=== PATIENT | female | born 1960 | race Caucasian/White ===

== ENCOUNTER 2022-01-28 05:25 | Day surgery (SDC) | payer OTHER, SELFPAY ==
[~2022-01-28] VITALS: Ht 172.7 cm; Wt 113.4 kg
[2022-01-28] MEDS ORDERED: CEFAZOLIN SOD 1 GM in D5W 50 ML IV ONE (07:00)
[2022-01-28] MEDS ORDERED: ACETAMINOPHEN I.V. 1000 MG 100 ML IV ONE (07:30)
[2022-01-28] MEDS ORDERED: DEXAMETHASONE SOD PHOSPHATE 4 MG/ML VIAL ONE (07:32)
[2022-01-28] MEDS ORDERED: SUGAMMADEX SODIUM 200 MG/2 ML VIAL IV ONE (07:32)
[2022-01-28] MEDS ORDERED: fentaNYL CITRATE 250 MCG/5 ML AMP ONE (07:32)
[2022-01-28] MEDS ORDERED: CEFAZOLIN 2 GM IVPB PREMIX 50 ML IV ONE (07:32)
[2022-01-28] MEDS ORDERED: PROPOFOL 200MG/ 20ML VIAL (DIPRIVAN) IV ONE (07:32)
[2022-01-28] MEDS ORDERED: DESFLURANE 15 MIN GAS INH ONE (07:32)
[2022-01-28] MEDS ORDERED: KETOROLAC TROMETHAMINE 30 MG VIAL ONE (07:32)
[2022-01-28] MEDS ORDERED: ROCURONIUM BROMIDE 10 MG/ML (ZEMURON) ONE (07:32)
[2022-01-28] MEDS ORDERED: BUPIVACAINE /EPINEPHRINE/PF 0.25% 30 ML VIAL INJ ONE (07:32)
[2022-01-28] MEDS ORDERED: LIDOCAINE 1% 10 MG/ML, 20 ML MDV ONE (07:32)
[2022-01-28] MEDS ORDERED: WATER FOR IRRIGATION,STERILE 1,000 ML IRRIG.SOLN IR ONE (07:32)
[2022-01-28] MEDS ORDERED: NS IRRIG SOLN 1000 ML IR ONE (07:32)
[2022-01-28] MEDS ORDERED: LR 1,000 ML IV.SOLN IV ONE (07:32)
[2022-01-28] MEDS ORDERED: MIDAZOLAM HCL 5 MG/5 ML VIAL ONE (07:32)
[2022-01-28] MEDS ORDERED: GLYCOPYRROLATE 0.2 MG/ML VIAL ONE (07:32)
[2022-01-28] MEDS ORDERED: NS 100 ML BAG ONE (07:32)
[2022-01-28] MEDS ORDERED: ONDANSETRON HCL 4 MG/2 ML VIAL ONE (07:32)
[2022-01-28] MEDS ORDERED: HYDROmorphone 1 MG/ML INJ. CARTRIDGE IVP PRN ×3 (08:15→09:45)
[2022-01-28] MEDS ORDERED: METOCLOPRAMIDE HCL 10 MG/2 ML VIAL IVP PRN (08:15)
[2022-01-28] MEDS ORDERED: MEPERIDINE HCL/PF 25 MG/ML DISP.SYRIN IVP PRN (08:15)
[2022-01-28] MEDS ORDERED: LR 1,000 ML IV SCH (08:15)
[2022-01-28] MEDS ORDERED: ATROPINE SULFATE 1 MG/10 ML SYRINGE IVP PRN (09:30)
[2022-01-28] MEDS ORDERED: D5/0.45 NS 1,000 ML IV SCH (09:45)
[2022-01-28] MEDS ORDERED: HYDROcodone/ACETAMIN 5-325 MG TAB (NORCO/ VICODIN) PO PRN ×2 (09:45)
[2022-01-28] MEDS: MEPERIDINE HCL/PF 25 MG/ML DISP.SYRIN ONE ×2 (09:57→09:59)
[2022-01-28] MEDS: HYDROmorphone 2 MG/ML VIAL ONE ×5 (10:39→10:59)
[2022-01-28 13:30] VITALS: BP_SYST 112
== END 2022-01-28 13:30 | disposition home or self-care (01) ==
LOC: SDS 05:25 → SMU 05:25 → SDS 13:30
PROVIDERS: ATTEND Colon & Rectal Surgery
DX: K80.10 Calculus of gallbladder with chronic cholecystitis without obstruction (principal); G47.33 Obstructive sleep apnea (adult) (pediatric); Z99.89 Dependence on other enabling machines and devices; E66.01 Morbid (severe) obesity due to excess calories; Z90.49 Acquired absence of other specified parts of digestive tract; Z79.899 Other long term (current) drug therapy; Z20.822 Contact with and (suspected) exposure to COVID-19
CPT/HCPCS: 36415; 47563; 74300; 87426; 88304; C1727; C1758; J0131; J0690; J1100; J1170; J1885; J2001; J2175; J2250; J2405; J2704; J3010; J3490 ×3; J7060; J7120; Q9967; U0003; 76000